=== PATIENT | male | born 1975 | race African-American/Black ===

== ENCOUNTER 2021-05-11 15:57 | Inpatient (IN) | payer OTHER ==
[2021-05-11 17:52] VITALS: BMI 21.3
[2021-05-11] MEDS ORDERED: hydrOXYzine PAMOATE 25 MG CAPSULE (FP) PO PRN (20:24)
[2021-05-11] MEDS ORDERED: ACETAMINOPHEN 325 MG TABLET (FP) PO PRN (20:24)
[2021-05-11] MEDS ORDERED: MENTHOL/PHENOL 1 EACH UD MM PRN (20:24)
[2021-05-11] MEDS ORDERED: MAGNESIUM HYDROX 2400MG/30ML ORAL SUSPENSION 30 ML CUP PO PRN (20:24)
[2021-05-11] MEDS ORDERED: MAGNESIUM CITRATE 300 ML BOTTLE PO PRN (20:24)
[2021-05-11] MEDS ORDERED: ONDANSETRON *ODT* 4 MG TABLET SL PRN (20:24)
[2021-05-11] MEDS ORDERED: LORazepam 1 MG TABLET PO PRN (20:24)
[2021-05-11] MEDS ORDERED: MAG HYDROX/AL HYDROX/SIMETH 30 ML UNIT-DOSE CUP PO PRN (20:24)
[2021-05-11] MEDS ORDERED: NICOTINE POLACRILEX 2 MG GUM BUC PRN (20:24)
[2021-05-11] MEDS ORDERED: METHOCARBAMOL 500 MG TABLET PO PRN (20:24)
[2021-05-11] MEDS ORDERED: CLINDAMYCIN HCL 150 MG PO SCH (22:00)
[2021-05-11] MEDS ORDERED: MELATONIN 5 MG TABLETS PO SCH (22:00)
[2021-05-11] MEDS: THIAMINE HCL 100 MG TABLET (FP) PO SCH (22:12)
[2021-05-11] MEDS: LORazepam 2 MG TABLET PO SCH (22:12)
[2021-05-12] MEDS: LORazepam 2 MG TABLET PO SCH ×4 (05:31→22:10)
[2021-05-12] MEDS ORDERED: METHADONE HCL 10 MG TABLET (FOR DETOX USE ONLY) PO ONE (10:00)
[2021-05-12] MEDS: CLINDAMYCIN HCL 150 MG PO SCH ×4 (10:20→22:10)
[2021-05-12] MEDS: NICOTINE 21 MG/24 HOURS TOPICAL PATCH TD SCH (10:21)
[2021-05-12] MEDS: PRENATAL VITAMINS W/ FOLIC ACID TABLET (FP) PO SCH (10:22)
[2021-05-12 11:15] LABS: HEMOGLOBIN 12.6 GM/dL (11.7-16.9); MCH 30.7 pg (25.7-33.7); MCHC 32.3 g/dl (32.0-35.9); MEAN CELL VOLUME 94.8 fl (80-96); MEAN PLT VOLUME 7.7 fl (7.5-11.1); PLATELET COUNT 512 10^3/uL (134-434); RBC 4.11 M/mm3 (4.00-5.60); RDW 14.2 % (11.9-15.9); WHITE BLOOD COUNT 5.2 K/mm3 (4.0-10.0)
[2021-05-12 11:19] LABS: ALBUMIN 2.4 g/dl (3.4-5.0); CALCIUM 8.5 mg/dL (8.5-10.1)
[2021-05-12 11:20] LABS: BLOOD UREA NITROGEN 12.3 mg/dL (7-18)
[2021-05-12 11:23] LABS: CREATININE 0.9 mg/dL (0.55-1.3)
[2021-05-12 11:24] LABS: BILIRUBIN,TOTAL 0.2 mg/dL (0.2-1); TOT PROT 6.5 g/dl (6.4-8.2)
[2021-05-12] MEDS: ACETAMINOPHEN 325 MG TABLET (FP) PO PRN (19:21)
[2021-05-12] MEDS: traZODone HCL 100 MG TABLET (FP) PO SCH (22:10)
[2021-05-12] MEDS: THIAMINE HCL 100 MG TABLET (FP) PO SCH (22:10)
[2021-05-13] MEDS: LORazepam 1 MG TABLET PO SCH ×4 (05:34→22:09)
[2021-05-13] MEDS: IBUPROFEN 400 MG TABLET (FP) PO PRN ×2 (05:36→14:23)
[2021-05-13] MEDS ORDERED: METHADONE HCL 5 MG TABLET (FOR DETOX USE ONLY) ONE (08:51)
[2021-05-13] MEDS ORDERED: METHADONE HCL 10 MG TABLET (FOR DETOX USE ONLY) ONE (08:51)
[2021-05-13] MEDS ORDERED: METHADONE (DETOX) 10 MG, METHADONE (DETOX) 5 MG PO ONE (10:00)
[2021-05-13] MEDS: NICOTINE 21 MG/24 HOURS TOPICAL PATCH TD SCH (10:04)
[2021-05-13] MEDS: CLINDAMYCIN HCL 150 MG PO SCH ×4 (10:04→22:10)
[2021-05-13] MEDS: PRENATAL VITAMINS W/ FOLIC ACID TABLET (FP) PO SCH (10:06)
[2021-05-13] MEDS: BISMUTH SUBSALICYLATE 524 MG/30 ML PO PRN ×2 (14:25→22:14)
[2021-05-13] MEDS: ACETAMINOPHEN 325 MG TABLET (FP) PO PRN (18:21)
[2021-05-13] MEDS: THIAMINE HCL 100 MG TABLET (FP) PO SCH (22:09)
[2021-05-13] MEDS: traZODone HCL 100 MG TABLET (FP) PO SCH (22:09)
[2021-05-13] MEDS: BACITRACIN 0.9 GM PACKET TP SCH (22:10)
[2021-05-14] MEDS ORDERED: LORazepam 0.5 MG TABLET PO PRN
[2021-05-14] MEDS: LORazepam 0.5 MG TABLET PO SCH ×4 (05:36→22:13)
[2021-05-14] MEDS ORDERED: METHADONE HCL 10 MG TABLET (FOR DETOX USE ONLY) PO ONE (10:00)
[2021-05-14] MEDS: PRENATAL VITAMINS W/ FOLIC ACID TABLET (FP) PO SCH (10:38)
[2021-05-14] MEDS: BACITRACIN 0.9 GM PACKET TP SCH ×2 (10:38→22:14)
[2021-05-14] MEDS: NICOTINE 21 MG/24 HOURS TOPICAL PATCH TD SCH (10:38)
[2021-05-14] MEDS: CLINDAMYCIN HCL 150 MG PO SCH ×4 (10:39→22:14)
[2021-05-14] MEDS: IBUPROFEN 400 MG TABLET (FP) PO PRN (14:46)
[2021-05-14] MEDS: traZODone HCL 100 MG TABLET (FP) PO SCH (22:13)
[2021-05-14] MEDS: THIAMINE HCL 100 MG TABLET (FP) PO SCH (22:13)
[2021-05-15] MEDS ORDERED: METHADONE HCL 5 MG TABLET (FOR DETOX USE ONLY) PO ONE (05:00)
[2021-05-15] MEDS ORDERED: LORazepam 0.5 MG TABLET PO ONE (05:00)
[2021-05-15 07:34] VITALS: BP 124/78; PULSE 79; TEMP 97
[2021-05-15] MEDS: PRENATAL VITAMINS W/ FOLIC ACID TABLET (FP) PO SCH (10:34)
[2021-05-15] MEDS: NICOTINE 21 MG/24 HOURS TOPICAL PATCH TD SCH (10:34)
[2021-05-15] MEDS: BACITRACIN 0.9 GM PACKET TP SCH (10:34)
[2021-05-15] MEDS: CLINDAMYCIN HCL 150 MG PO SCH (10:34)
== END 2021-05-15 10:37 | disposition home or self-care (01) | DRG 773 ==
LOC: YASAS 15:57 → Y6N 19:47
PROVIDERS: ADMIT Allergy & Immunology; ATTEND Allergy & Immunology
PROC: HZ2ZZZZ Detoxification Services for Substance Abuse Treatment (ICD-10-PCS; principal; 2021-05-11)
DX: F11.23 Opioid dependence with withdrawal (principal); F10.230 Alcohol dependence with withdrawal, uncomplicated; F14.10 Cocaine abuse, uncomplicated; F17.210 Nicotine dependence, cigarettes, uncomplicated; F19.282 Other psychoactive substance dependence with psychoactive substance-induced sleep disorder; K21.9 Gastro-esophageal reflux disease without esophagitis; L03.116 Cellulitis of left lower limb; L85.3 Xerosis cutis; M54.5 Low back pain; G89.29 Other chronic pain; R60.0 Localized edema; Z56.0 Unemployment, unspecified; Z59.0 Homelessness
CPT/HCPCS: 36415; 80053; 85027; 86780; 93005; 93010; C9803; U0003; U0005